=== PATIENT | female | born 1985 | race Caucasian/White ===

== ENCOUNTER 2019-01-31 15:14 | Emergency (ER) | payer OTHER ==
[2019-01-31] MEDS ORDERED: SODIUM CHLORIDE 0.9% 1,000 ML IV ONE (16:24)
--- NOTE | 2019-01-31 16:28 | ED Physician Documentation ---
PD HPI FEMALE - Stated complaint Stated Complaint: FEMALE /HEAD INJ - Chief complaint Chief Complaint: Abd Pain - History obtained from History obtained from: Patient, Friend - History of Present Illness Timing - onset: Today Timing - duration: Seconds Timing - details: Abrupt onset, Now resolved Associated symptoms: Vaginal bleeding. 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 Review of Systems Constitutional: denies: Fever Eyes: denies: Decreased vision Ears: denies: Ear pain Nose: denies: Congestion Throat: denies: Sore throat Cardiac: denies: Chest pain / pressure, Palpitations Respiratory: denies: Dyspnea, Cough GI: denies: Abdominal Pain, Nausea, Vomiting, Constipation, Diarrhea : reports: Vaginal bleeding, Irregular menses. denies: Dysuria, Frequency Skin: denies: Rash Neurologic: reports: Syncope. denies: Generalized weakness, Focal weakness, Numbness, Difficulty speaking, Seizure, Confused, Altered mental status PD PAST MEDICAL HISTORY - Past Medical History Past Medical History: No - Past Surgical History Past Surgical History: No - Present Medications Home Medications: Ambulatory Orders Medication Instructions Recorded Confirmed Ethinyl Estradiol/Drospirenone 1 each PO DAILY PM #28 tablet 01/31/19 [Palma 28 Tablet] Propranolol ER [Inderal LA] 60 mg PO DAILY 01/31/19 01/31/19 - Allergies Allergies/Adverse Reactions: Allergies Allergy/AdvReac Type Severity Reaction Status Date / Time No Known Drug Allergies Allergy Verified 01/31/19 15:35 - Social History Does the pt smoke?: No Smoking Status: Never smoker Does the pt drink ETOH?: No Does the pt have substance abuse?: No - Immunizations Immunizations are current?: Yes PD ED PE NORMAL - Vitals Vital signs reviewed: Yes (hypertensive ) - General General: Alert and oriented X 3, No acute distress, Well developed/nourished - HEENT HEENT: Atraumatic, PERRL, EOMI - Neck Neck: Supple, no meningeal sign, No bony TTP - Cardiac Cardiac: RRR, No murmur - Respiratory Respiratory: No respiratory distress, Clear bilaterally - Abdomen Abdomen: Soft, Non tender - Back Back: No CVA TTP, No spinal TTP - Derm Derm: Normal color, Warm and dry, No rash - Extremities Extremities: No deformity, No edema - Neuro Neuro: Alert and oriented X 3, roll examiner 2-12 intact, No motor deficit, No sensory deficit, Normal speech Eye Opening: Spontaneous Motor: Obeys Commands Verbal: Oriented GCS Score: 15 - Psych Psych: Normal mood, Normal affect Results - Vitals Vitals: Vital Signs - 24 hr 01/31/19 01/31/19 01/31/19 15:32 15:35 16:47 Temperature 36.9 C Heart Rate 73 61 79 Respiratory 18 16 16 Rate Blood Pressure 130/86 H 109/78 103/78 O2 Saturation 100 99 99 Oxygen O2 Source Room air - Labs Labs: Laboratory Tests 01/31/19 01/31/19 01/31/19 16:09 16:09 16:09 WBC 13.1 H RBC 3.94 L Hgb 11.8 L Hct 35.4 L MCV 89.9 MCH 29.9 MCHC 33.3 RDW 13.0 Plt Count 244 MPV 9.3 Neut # (Auto) 10.4 H Lymph # (Auto) 1.7 Haakon # (Auto) 0.8 Eos # (Auto) 0.0 Baso # (Auto) 0.0 Absolute Nucleated RBC 0.00 Nucleated RBC % 0.0 Sodium 136 Potassium 4.3 Chloride 103 Carbon Dioxide 25 Anion Gap 8.0 BUN 13 Creatinine 0.5 Estimated GFR (MDRD) 143 Glucose 90 Calcium 8.5 Total Bilirubin 0.6 AST 15 ALT 10 Alkaline Phosphatase 51 Troponin I < 0.04 Total Protein 6.7 Albumin 4.2 Globulin 2.5 Albumin/Globulin Ratio 1.7 Lipase 30 HCG, Quant 01/31/19 16:09 WBC RBC Hgb Hct MCV MCH MCHC RDW Plt Count MPV Neut # (Auto) Lymph # (Auto) Haakon # (Auto) Eos # (Auto) Baso # (Auto) Absolute Nucleated RBC Nucleated RBC % Sodium Potassium Chloride Carbon Dioxide Anion Gap BUN Creatinine Estimated GFR (MDRD) Glucose Calcium Total Bilirubin AST ALT Alkaline Phosphatase Troponin I Total Protein Albumin Globulin Albumin/Globulin Ratio Lipase HCG, Quant < 0.60 - Rads (name of study) pelvic U/S Radiology: Prelim report reviewed (Impression: 1. There is enlargement of the left ovary, within which there is a homogeneous hypoechoic lesion. This could represent an endometrioma or cyst. 2 Uterus is normal in size and echotexture. 3 There is echogenic material within the endometrium without evidence of associated vascularity. This could represent blood clot.), EMP read indepedently, See rad report Procedures - Bedside sono Bedside sono by EMP: With use of bedside ultrasound the pelvis is imaged and the uterus and appears mildly enlarged without excessive endometrial stripe. There does appear to be fluid surrounding the uterus.There is no fluid in Morison's pouch. - IVC sono (time) 1620 Bedside IVC sono: IVC measures (cm) (1.7), Euvolemia PD MEDICAL DECISION MAKING - ED course Complexity details: reviewed results, re-evaluated patient, considered differential, d/w patient, d/w family ED course: 33-year-old female with vaginal bleeding and syncope is found to be euvolemic on interrogation of the inferior vena cava and there is a question of some free fluid in the pelvis and not in Richey's pouch. An IV is begun the patient is administered saline blood work is obtained and we have asked the civil drafting technician to come in and evaluate the pelvis. The ultrasound is unremarkable and the patient is diagnosed with dysfunctional uterine bleeding and we will start her on some oral contraceptive and have her follow up with FELLER SEAM OPERATOR. Departure - Departure Disposition: 01 Home, Self Care Clinical Impression: Dysfunctional uterine bleeding, Syncope and collapse Condition: Stable Instructions: ED Bleed Irregular Vaginal, ED Syncope Vasovagal Follow-Up: ARIA RICARDO [Primary Care Provider] - [facility] [Provider Group] Prescriptions: Ethinyl Estradiol/Drospirenone [Palma 28 Tablet] 1 each PO DAILY PM #28 tablet
[2019-01-31 16:35] LABS: BASOPHILS % (AUTO) 0.3 %; EOSINOPHILS % (AUTO) 0.3 %; HGB - HEMOGLOBIN 11.8 g/dL (12.0-16.0); LYMPHOCYTES # (AUTO) 1.7 10^3/uL (1.5-3.5); LYMPHOCYTES % (AUTO) 13.1 %; MEAN CORPUSCULAR HEMOGLOBIN 29.9 pg (27.0-31.0); MEAN CORPUSCULAR HGB CONC 33.3 g/dL (32.0-36.0); MEAN CORPUSCULAR VOLUME 89.9 fL (81.0-99.0); MEAN PLATELET VOLUME 9.3 fL (7.9-10.8); MONOCYTES # (AUTO) 0.8 10^3/uL (0.0-1.0); MONOCYTES % (AUTO) 6.4 %; NEUTROPHILS # (AUTO) 10.4 10^3/uL (1.5-6.6); NEUTROPHILS % (AUTO) 79.9 %; PLT - PLATELET COUNT 244 10^3/uL (130-450); RED BLOOD COUNT 3.94 10^6/uL (4.20-5.40); WHITE BLOOD COUNT 13.1 x10^3/uL (4.8-10.8)
[2019-01-31 16:50] LABS: ALBUMIN 4.2 g/dL (3.2-5.5); ALBUMIN/GLOBULIN RATIO 1.7 (1.0-2.2); BILIRUBIN,TOTAL 0.6 mg/dL (0.2-1.0); CALCIUM 8.5 mg/dL (8.5-10.3); CREATININE 0.5 mg/dL (0.4-1.0); TOTAL PROTEIN 6.7 g/dL (6.7-8.2)
--- NOTE | 2019-01-31 18:28 | Ultrasound Report ---
Reason: excessive bleeding ? free fluid in pelvis Procedure Date: 01/31/2019 Accession Number: [id number] / [id number] Procedure: US - Pelvic Complete CPT Code: FULL RESULT: EXAM: PELVIC ULTRASOUND EXAM DATE: 01/31/2019 06:15 PM. CLINICAL HISTORY: Pelvic pain COMPARISON: None. TECHNIQUE: Realtime transabdominal pelvic scan performed to identify the uterus and adnexa and as an overview of other pelvic structures, followed by transvaginal scan to provide greater detail of the uterus and adnexa, with static image documentation. FINDINGS: Uterus: 10.8 x 4.2 x 5.8 cm, volume 137 cc. Anteverted position. Normal overall size and echotexture. Masses: None. Endometrium: 10 mm. There is echogenic debris within the endometrium. No focal vascularity. Cervix: Unremarkable. Right Ovary: 3.5 x 2.0 x 2.5 cm, volume 8.8 cc. Normal echotexture and blood flow. Left Ovary: 7.9 x 5.3 x 6.8 cm, volume 148.5 cc. There is a hypoechoic, homogeneous avascular focus within the left ovary. Vascularity demonstrated the margins of the left ovary during the course of the examination. Free Fluid: There is a small amount of free fluid within the pelvis. Other: None. IMPRESSION: 1. There is enlargement of the left ovary, within which there is a homogeneous hypoechoic lesion. This could represent an endometrioma or cyst. 2. Uterus is normal in size and echotexture. 3. There is echogenic material within the endometrium without evidence of associated vascularity. This could represent blood clot. RADIA
[2019-01-31 19:08] LABS: BILIRUBIN,URINE NEGATIVE (NEGATIVE); GLUCOSE, URINE (UA) NEGATIVE (NEGATIVE); KETONES,URINE (UA) TRACE mg/dL (NEGATIVE); LEUKOCYTE ESTERASE, URINE TRACE (NEGATIVE); NITRITE,URINE NEGATIVE (NEGATIVE); OCCULT BLOOD,URINE MODERATE (NEGATIVE); PROTEIN,URINE NEGATIVE (NEGATIVE); UROBILINOGEN,URINE 0.2 (NORMAL) E.U./dL (NORMAL)
[2019-01-31 19:10] LABS: CLARITY,URINE HAZY (CLEAR)
[2019-01-31 19:15] LABS: BACTERIA,URINE None Seen /HPF (None Seen); SQUAMOUS EPITHELIAL CELL,UR NONE SEEN (<= Few)
[2019-01-31 19:33] VITALS: BP 98/76
== END 2019-01-31 19:33 | disposition home or self-care (01) ==
LOC: ED 15:14
DX: N93.8 Other specified abnormal uterine and vaginal bleeding (principal); R55 Syncope and collapse
CPT/HCPCS: 36415; 76830; 76856; 80053; 81001; 81003; 83690; 84484; 84702; 85025; 87086; 99283; 99284

== ENCOUNTER 2019-04-09 11:17 | Day surgery (SDC) | payer OTHER ==
[2019-04-09] MEDS ORDERED: ceFAZolin 2 GM/50 ML 2 GM/50 ML BAG IV ONE (11:18)
[2019-04-09] MEDS ORDERED: LACTATED RINGERS 1,000 ML IV ONE (11:30)
[2019-04-09] MEDS ORDERED: SILVER NITRATE APPLICATOR TOP ONE (11:42)
[2019-04-09] MEDS ORDERED: METHYLENE BLUE 0.5% 50 MG/10 ML AMPULE ONE (11:43)
[2019-04-09] MEDS ORDERED: BUPIVACAINE 0.25% PF 30 ML VIAL ONE (11:43)
[2019-04-09] MEDS ORDERED: LIDOCAINE MPF 2%-EPI 1:200000 20 ML VIAL ONE (11:45)
[2019-04-09] MEDS ORDERED: VASOPRESSIN 20 UNIT/ML VIAL ONE (11:45)
[2019-04-09 11:46] LABS: HCG UR QUAL NEGATIVE
--- NOTE | 2019-04-09 11:49 | ANESTHESIA ---
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, possible left ovarian cystectomy, fulguration of endometriosis, myosure hysteroscopy,d&c Vital Signs: Temp Pulse Resp BP Pulse Ox 36.4 C L 63 12 115/80 100 04/09/19 11:34 04/09/19 11:34 04/09/19 11:34 04/09/19 11:34 04/09/19 11:34 Height 5 ft 6 in Weight (kg) 55.4 kg Body Mass Index 19.7 - NPO >8 hours - Is Patient ?: No Home Medications and Allergies Home Medications: Ambulatory Orders Docusate Calcium [Surfak] 240 mg PO DAILY PRN 03/27/19 Ferrous Sulfate 324 mg PO DAILY 03/27/19 Propranolol ER [Inderal LA] 60 mg PO DAILY 01/31/19 Docusate Calcium [Surfak] 240 mg PO DAILY PRN 03/27/19 Ferrous Sulfate 324 mg PO DAILY 03/27/19 Allergies/Adverse Reactions: Allergies Allergy/AdvReac Type Severity Reaction Status Date / Time No Known Drug Allergies Allergy Verified 03/27/19 11:52 Anes History & Medical History - Anesthetic History Anesthesia Complications: reports: No previous complications Family history of Anesthesia Complications: Denies Family history of Malignant Hyperthermia: Denies - Medical History Cardiovascular: reports: None Pulmonary: reports: None Gastrointestinal: reports: None Urinary: reports: Other Neuro: reports: Migraines Musculoskeletal: reports: None Endocrine/Autoimmune: reports: None Skin: reports: None Smoking Status: Never smoker - Surgical History Eyes Ears Nose Throat (EENT): Tonsil/Adenoidectomy Exam General: Alert, Oriented x3, Cooperative, No acute distress Dental: WNL Mouth Openin Fingerbreadth Neck Mobility: Normal Mallampati classification: II Thyromental Distance: 4-6 cm Respiratory: Lungs clear, Normal breath sounds, No respiratory distress, No accessory muscle use Cardiovascular: Regular rate, Normal S1, Normal S2, No murmurs Mental/Cognitive Status: Alert/Oriented X3, Normal for patient Plan Anesthesia Type: General Consent for Procedure(s) Verified and Reviewed: No Code Status: Attempt Resuscitation ASA classification: 1-Healthy patient Is this case an emergency?: No
[2019-04-09] MEDS ORDERED: BUPIVACAINE 0.25% PF 30 ML VIAL SUBQ ONE ×2 (13:10)
[2019-04-09] MEDS ORDERED: LIDOCAINE 2%-EPI 1:100000 20 ML MDV SUBQ ONE (13:41)
[2019-04-09] MEDS ORDERED: ONDANSETRON 4 MG/2 ML VIAL IVP PRN (14:40)
--- NOTE | 2019-04-09 14:43 | OPERATIVE REPORT ---
Operative Report - General Planned Procedure: Laparoscopy, left ovarian cystectomy, hysteroscopy, dilation and curettage, possible oophorectomy, possible fulguration of endometriosis, possible polypectomy Pre-Op Diagnosis: Complex left ovarian cyst, pelvic pain, abnl ut bleeding, endomet mass Procedure Performed: Laparoscopy, drainage of left ovarian cyst, fulguration of endometriosis, hysteroscopy, dilation and curettage, endocervical polypectomy Post Op Diagnosis: Endometriosis, left ovarian endometrioma, endocervical polyp - Procedure Note Primary Surgeon: Dr. Amy Chowdhury Secondary Surgeon: None Anesthesia Provider: DIMA Zhang Anesthesia Technique: General ET tube Pathology: Endometrial curettings, Endocervical polyp and curettings IV Fluids (mL): 500 Estimated Blood Loss (mL): 25 Urine Output (mL): 250 Indications: The patient is a 33-year-old 0 female here for evaluation and management of a large left ovarian cyst and pelvic pain. The cyst was first noted on ultrasound, which was performed for some abnormal uterine bleeding, and appears consistent with a possible endometrioma given its complex appearance. A CA-125 was initially ordered by her primary care provider and was elevated. However, on repeat blood test the CA-125 was within normal range. Her most recent ultrasound noted the left ovary was enlarged with a large ovoid, well-defined cyst with only a thin rim of surrounding ovarian tissue and a suggestion of some minimal homogeneous low-level internal echoes. The cyst measured 7.4 x 6.8 x 3.9 cm. The right ovary appeared normal. There was a rounded, ovoid tissue mass in the lower portion of the endometrial cavity with estimated size 9 x 8 x 6 mm, suspicious for small endometrial polyp. She had been having several weeks of abnormal uterine bleeding, which prompted the first pelvic ultrasound and detected a left ovarian cyst. She has had right lower quadrant pain on and off, usually with her menstrual cycles. Her cycles in the past were monthly and regular. However her January cycle was late, then she bled for 2 weeks. Bleeding was very heavy requiring pads and tampons changed very frequently. Her February menstrual cycle was more regular. She was seen in the emergency room with syncope, and anemia noted. She is been on iron since then. She has no other history of abnormal uterine bleeding or [employer] concerns. She tried 1 month of Palma control pills to help with the bleeding, then stopped this medication desiring further diagnosis and surgical management as indicated. With a complex large ovarian cyst and history of pelvic pain, it was recommended she undergo laparoscopic resection of the cyst as well as visualize the pelvis for any evidence of other source of her pain to include endometriosis. Given the new finding of a suspected endometrial polyp it was also recommended that she undergo hysteroscopy, dilation curettage, and removal of the polyp if seen. The expectations, limitations, alternatives, and risks of surgery were discussed. The consent was reviewed and signed prior to the date of surgery. Findings: Exam under anesthesia: The uterus was anteverted and approximately 6 weeks in size. Mobilization of the pelvic structures seemed minimal on bimanual exam. A fullness was appreciated at the left lower quadrant, more with the abdominal hand than the vaginal hand. No right adnexal fullness or mass was appreciated. Laparoscopic findings: The uterus overall appeared normal. A large patch (approximately 3 x 2 cm) of superficial endometriotic implant was noted at the anterior cul-de-sac, overlying the left aspect of the bladder. Smaller endometriosis lesions were noted throughout the anterior cul-de-sac, over the bladder, within the posterior cul-de-sac, within the left ovarian fossa, and on the right ovary. The left ovary was enlarged to approximately 7 cm and was adhesed into the left ovarian fossa and posterior left side of the uterus. This adhesion was left in situ. Drainage of the cyst resulted in copious amounts of chocolate cyst fluid. The sigmoid colon was thinly adhered to the left ovarian vessels. The right ovary appeared normal with the exception of a small endometriotic implant. Both fallopian tubes overall appeared normal. The appendix was visualized and appeared normal. The liver edge also appeared normal. Hysteroscopic findings: The endometrial cavity overall appeared normal after gentle curettage to remove the superficial layer. At the internal cervical os, lower uterine segment, an approximately 8 mm endocervical polyp was removed with polyp forceps. At the completion of the case, a small tear in the right hymenal ring, at approximately 7:00, was repaired with a [id number] suture of 3-0 chromic. Complications: None - Other Other Information/Narrative: Procedure: The patient was taken to the operating room, where general endotracheal anesthesia was administered without difficulty. She was then positioned in the low dorsal lithotomy position with her lower extremities in Yellow Fin stirrups. Vagina, perineum, and abdomen were then prepped and draped in a sterile fashion, and a seymour catheter was placed just for the duration of the case. Procedure Time-Out was then performed. A sterile bivalve speculum was then inse rted into the vagina. The anterior lip of the cervix was grasped with a single- tooth tenaculum, then the cervix was serially dilated until a Humi uterine manipulator could be advanced and the balloon inflated. The speculum was then removed, and attention was turned to the laparoscopy. 0.25% Marcaine was injected infraumbilically, then a 7-mm vertical skin incision made. A Verrees needle was then inserted through the anterior layers of the abdominal wall with saline drop test suggesting intraperitoneal placement. Carbon dioxide gas insufflation was then performed, and high opening pressures noted. The Verrees needle was repositioned three more times, then finally the opening pressure was appropriate. Once 2 L of gas was instilled, the Verrees was removed, and a 0-degree, 5 mm laparoscope was inserted into a 5 mm trocar and passed through the anterior layers of the abdominal wall using Optiview technique. The abdominal cavity was visualized, then two additional ports were placed at the right and left lower quadrants, first instilling local anesthetic, then placing the ports under direct visualization with the laparoscope. The patient was placed into Trendelenberg and bowel swept out of the cul-de-sac. The pelvis was visualized with the findings as noted above. Bovie cautery was utilized to fulgurate the anterior cul-de-sac endometriosis lesions. The medial side of the large ovarian cyst was cauterized with bovie then opened to allow drainage. Chocolate cyst fluid was noted, and the cavity was suctioned and irrigated. The opening was further enlarged with endoshears to minimize risk of reseal and reaccumulation of endometrioma fluid. The cul-de-sac was copioiusly irrigated as well. At this point the laparoscopy was deemed complete. The carbon dioxide gas was then allowed to escape, and all trocars were removed from the abdomen The incisions were then closed with 4-0 Monocryl in a subcuticular fashion followed by Dermabond skin adhesive. The uterine manipulator was removed, then the sterile bivalve speculum reinserted for the hysteroscopy. The anterior lip of the cervix was grasped with a single-tooth tenaculum. Serial dilation using Hegar dilators was then performed until the Myosure hysteroscope could be advanced. Using saline for distension, the cavity was visualized with the findings as note above. Gentle sharp curettage was perf ormed to improve visualization, and a small amount of tissue was noted. An endocervical polyp was grasped and removed with polyp forceps, then an endocervical curettage was performed to try to remove the majority of an residual pedicle. Total fluid deficit was 300 ml, though it was likely less, as a moderate amount had escaped onto the floor. The tenaculum was removed, and the tenaculum sites were hemostatic without need for silver nitrate. The speculum was then removed from the vagina. A small tear of the hymenal ring was noted at 0700 and likely related from the speculum size relative to the vaginal opening. As it was bleeding, a [id number] suture of 3-0 chromic was placed to reapproximate and achieve hemostasis. The seymour catheter was then removed. The patient was then replaced supine, awakened, extubated, and transferred to the PACU in stable condition. There were no complications. Sponge, lap, and needle count were correct x 3.
[2019-04-09] MEDS ORDERED: fentaNYL 100 MCG/2 ML VIAL ONE (14:54)
[2019-04-09] MEDS ORDERED: ROCURONIUM 50 MG/5 ML VIAL IVP ONE (15:00)
[2019-04-09] MEDS ORDERED: MIDAZOLAM 2 MG/2 ML VIAL IVP ONE (15:00)
[2019-04-09] MEDS ORDERED: GLYCOPYRROLATE 1 MG/5 ML VIAL IVP ONE (15:00)
[2019-04-09] MEDS ORDERED: ACETAMINOPHEN 1,000 MG/100 ML 100 ML IV ONE (15:00)
[2019-04-09] MEDS ORDERED: NEOSTIGMINE 1 MG/1 ML 10 ML MDV IVP ONE (15:00)
[2019-04-09] MEDS ORDERED: KETOROLAC 30 MG/ML VIAL IVP ONE (15:00)
[2019-04-09] MEDS ORDERED: ONDANSETRON 4 MG/2 ML VIAL IVP ONE (15:00)
[2019-04-09] MEDS ORDERED: DEXAMETHASONE 4 MG/ML VIAL IVP ONE (15:00)
[2019-04-09] MEDS ORDERED: fentaNYL 100 MCG/2 ML VIAL IVP ONE (15:00)
[2019-04-09] MEDS ORDERED: LIDOCAINE-MPF 2% 5 ML VIAL IM ONE (15:00)
[2019-04-09] MEDS ORDERED: PROPOFOL 200 MG/20 ML VIAL IVP ONE (15:00)
[2019-04-09] MEDS ORDERED: HYDROcod/ACETAM 5/325 MG TABLET PO PRN (15:46)
[2019-04-09] MEDS ORDERED: HYDROcod/ACETAM 5/325 MG TABLET ONE (15:47)
[2019-04-09] MEDS ORDERED: ONDANSETRON 4 MG/2 ML VIAL ONE (16:39)
[2019-04-09] MEDS ORDERED: SCOPOLAMINE PATCH TOP ONE (16:46)
[2019-04-09 16:59] VITALS: BP 110/80
== END 2019-04-09 11:18 | disposition home or self-care (01) ==
LOC: SDS 11:17
PROVIDERS: ATTEND Obstetrics & Gynecology
PROC: 0UDB8ZX Extraction of Endometrium, Via Natural or Artificial Opening Endoscopic, Diagnostic (ICD-10-PCS; 2019-04-09)
PROC: 0U914ZZ Drainage of Left Ovary, Percutaneous Endoscopic Approach (ICD-10-PCS; principal; 2019-04-09 12:30)
PROC: 0UBC8ZZ Excision of Cervix, Via Natural or Artificial Opening Endoscopic (ICD-10-PCS; 2019-04-09 12:30)
DX: N83.202 Unspecified ovarian cyst, left side (principal); N80.1 Endometriosis of ovary; N80.9 Endometriosis, unspecified; N84.1 Polyp of cervix uteri; R10.2 Pelvic and perineal pain; N93.9 Abnormal uterine and vaginal bleeding, unspecified
CPT/HCPCS: 49322; 58558; 58662; 81025; A9270; J0131; J0690; J3490; J7120